=== PATIENT | female | born 1955 | race Caucasian/White ===

== ENCOUNTER 2023-11-24 14:45 | Observation (INO) | payer MEDICARE ==
[2023-11-24] MEDS: NITROGLYCERIN SL TABS 0.4 MG TAB SUBLINGUAL PRN (15:46)
--- NOTE | 2023-11-24 15:48 | ED ---
Chest Pain HPI - General Chief Complaint: Chest Pain Stated Complaint: abn EKG Time Seen by Provider: 11/24/23 15:00 Source: patient, RN notes reviewed Mode of arrival: ambulatory Limitations: no limitations - History of Present Illness Initial Comments: 68-year-old female with a benign past medical history other than cholecystectomy but a family history of it was positive for her dad who had CHF and mother who had a heart valve disorder who presents with complaints of intermittent episodes of left-sided chest discomfort with radiation to the back left shoulder and possibly up to the neck over the last couple weeks. She states it was intermittent up until 1 or 2 days ago there is no more constant. She states it is worse it is 7/10 in severity currently 5/10 just in her back she states there is nothing she can do to make it better or make it worse. She did take 4 baby aspirin's prior to coming in today. She was seen at a local clinic and advised to present to the emergency department. Denies any cough fevers chills sweats nausea vomiting. She did states she has some epigastric discomfort initially upon examination at the clinic but has not at this time. No peripheral edema no other complaints or modifying factors she is a non-smoker MD Complaint: chest pain - Related Data Home Medications Medication Instructions Recorded Confirmed Elderberry Fruit [Elderberry] 350 mg PO DAILY 11/24/23 11/24/23 Multivitamins, Thera [Multivitamin 1 tab PO DAILY 11/24/23 11/24/23 (formulary)] Turmeric Root Extract [Turmeric] 500 mg PO DAILY 11/24/23 11/24/23 Allergies Allergy/AdvReac Type Severity Reaction Status Date / Time No Known Allergies Allergy Verified 11/24/23 15:44 Review of Systems ROS Statement: Those systems with pertinent positive or pertinent negative responses have been documented in the HPI. ROS Other: All systems not noted in ROS Statement are negative. Past Medical History Past Medical History: No Reported History History of Any Multi-Drug Resistant Organisms: None Reported Past Surgical History: Cholecystectomy Past Psychological History: No Psychological Hx Reported Smoking Status: Never smoker Past Alcohol Use History: Occasional Past Drug Use History: None Reported General Exam - General Exam Comments Initial Comments: This is a well-developed well-nourished awake alert oriented x 4 female Limitations: no limitations General appearance: alert, anxious Head exam: Present: atraumatic, normocephalic, normal inspection Eye exam: Present: normal appearance, PERRL, EOMI. Absent: scleral icterus, conjunctival injection, periorbital swelling ENT exam: Present: normal exam, mucous membranes moist Neck exam: Present: normal inspection, full ROM, other (No stridor JVD or bruits). Absent: tenderness, meningismus, lymphadenopathy Respiratory exam: Present: normal lung sounds bilaterally. Absent: respiratory distress, wheezes, rales, rhonchi, stridor Cardiovascular Exam: Present: regular rate, normal rhythm, normal heart sounds, other (Normal upon my examination). Absent: systolic murmur, diastolic murmur, rubs, gallop, clicks GI/Abdominal exam: Present: soft, normal bowel sounds. Absent: distended, tenderness, guarding, rebound, rigid, bruit, pulsatile mass Rectal exam: Present: deferred Extremities exam: Present: normal inspection, full ROM, normal capillary refill. Absent: tenderness, pedal edema, joint swelling, calf tenderness Back exam: Present: normal inspection Neurological exam: Present: alert, oriented X3, CN II-XII intact Psychiatric exam: Present: normal affect, normal mood Skin exam: Present: warm, dry, intact, normal color. Absent: rash Course Vital Signs 11/24/23 11/24/23 11/24/23 14:49 15:22 16:00 Temperature 98.1 F Pulse Rate 108 H 93 Pulse Rate [ 95 Lip Cutter ] Respiratory 20 16 Rate Blood Pressure 173/94 121/83 O2 Sat by Pulse 99 97 Oximetry 11/24/23 17:00 Temperature Pulse Rate 80 Pulse Rate [ Lip Cutter ] Respiratory 14 Rate Blood Pressure 120/80 O2 Sat by Pulse 97 Oximetry - Reevaluation(s) Reevaluation #1: 11/24/23 17:46 Repeat examination of the patient reveals she did get improvement after nitroglycerin was administered. Chest Pain MDM - MDM I did discuss the findings with the patient and family members were present also with Dr. Martin. Patient will be admitted. Was pt. sent in by a medical professional or institution (, PA, [employer], urgent care, hospital, or assisted...) When possible be specific @ -No Did you speak to anyone other than the patient for history (EMS, parent, family, police, friend...)? What history was obtained from this source @ -Family Did you review nursing and triage notes (agree or disagree)? Why? @ -I reviewed and agree with nursing and triage notes Were old charts reviewed (outside hosp., previous admission, EMS record, old EKG, old radiological studies, urgent care reports/EKG's, assisted records)? Report findings @ -No old charts were reviewed Differential Diagnosis (chest pain, altered mental status, abdominal pain women, abdominal pain men, vaginal bleeding, weakness, fever, dyspnea, syncope, headache, dizziness, GI bleed, back pain, seizure, CVA, palpatations, mental health, musculoskeletal)? @ -Chest pain EKG interpreted by me (3pts min.). @ -As above EKG interpreted by me sinus rhythm was 63 parable 172 QRS duration 101 QT/QTc 365/371 minimal voltage criteria for LVH nonspecific inferior configuration this is compared to one sent in with the patient from the outpatient clinic. X-rays interpreted by me (1pt min.). @ -Chest x-ray interpreted by me no acute process. CT interpreted by me (1pt min.). @ -None done U/S interpreted by me (1pt. min.). @ -None done What testing was considered but not performed or refused? (CT, X-rays, U/S, labs)? Why? @ -None What meds were considered but not given or refused? Why? @ -None Did you discuss the management of the patient with other professionals (professionals i.e. , PA, [employer], lab, RT, psych nurse, dialysis social worker, tours captain, teacher, custody officer, correctional counselor/case manager)? Give summary @ -Dr. Martin Was smoking cessation discussed for >3mins.? @ -No Was critical care preformed (if so, how long)? @ -31 Were there social determinants of health that impacted care today? How? (Homelessness, low income, unemployed, alcoholism, drug addiction, transportation, low edu. Level, literacy, decrease access to med. care, custodial, rehab)? @ -No Was there de-escalation of care discussed even if they declined (Discuss DNR or withdrawal of care, Hospice)? DNR status @ -No What co-morbidities impacted this encounter? (DM, HTN, Smoking, COPD, CAD, Cancer, CVA, ARF, Chemo, Hep., AIDS, mental health diagnosis, sleep apnea, morbid obesity)? @ -None Was patient admitted / discharged? Hospital course, mention meds given and route, prescriptions, significant lab abnormalities, going to OR and other pertinent info. @ -Hospital course the patient was admitted for inpatient evaluation and treatment Undiagnosed new problem with uncertain prognosis? @ -Chest pain Drug Therapy requiring intensive monitoring for toxicity (Heparin, Nitro, Insulin, Cardizem)? @ -No Were any procedures done? @ -No Diagnosis/symptom? @ -Acute coronary syndrome, chest pain Acute, or Chronic, or Acute on Chronic? @ -Acute Uncomplicated (without systemic symptoms) or Complicated (systemic symptoms)? @ -Default Side effects of treatment? @ -No Exacerbation, Progression, or Severe Exacerbation? @ -No Poses a threat to life or bodily function? How? (Chest pain, [place], [place], pneumonia, PE, COPD, DKA, ARF, appy, cholecystitis, CVA, Diverticulitis, Homicidal, Suicidal, threat to staff... and all critical care pts) @ -Potential, chest pain Critical Care Time Critical Care Time: Yes Total Critical Care Time: 31 Disposition Clinical Impression: Acute coronary syndrome, Chest pain Disposition: ADMITTED IP TO THIS HOSP Condition: Stable Referrals: Konstantin Sahu MD [Primary Care Provider] - 1-2 days Time of Disposition: 17:51 Decision Date: 11/24/23 Decision Time: 17:51
[2023-11-24 15:58] LABS: Basophils % (A) 0 %; Eosinophils % (A) 0 %; HGB 14.4 gm/dL (11.4-16.0); Lymphocytes % (A) 14 %; MCH 29.1 pg (25.0-35.0); MCHC 32.6 g/dL (31.0-37.0); MCV 89.1 fL (80.0-100.0); Mean Platelet Volume 9.8; Monocytes # (A) 0.3 k/uL (0-1.0); Monocytes % (A) 4 %; Neutrophils # (A) 5.6 k/uL (1.3-7.7); Neutrophils % (A) 79 %; Platelet Count 182 k/uL (150-450); RBC 4.94 m/uL (3.80-5.40); RDW 13.2 % (11.5-15.5); WBC 7.1 k/uL (3.8-10.6)
--- NOTE | 2023-11-24 16:06 | XR ---
EXAMINATION TYPE: XR chest 2V DATE OF EXAM: 11/24/2023 3:59 PM CLINICAL INDICATION:Female, 68 years old with history of chest pain; [facility] COMPARISON: None TECHNIQUE: XR chest 2V Frontal and lateral views of the chest. FINDINGS: Lungs/Pleura: There is no evidence of pleural effusion, focal consolidation, or pneumothorax. Pulmonary vascularity: Unremarkable. Heart/mediastinum: Cardiomediastinal silhouette is unremarkable. Musculoskeletal: No acute osseous pathology. IMPRESSION: No acute cardiopulmonary disease/process.
[2023-11-24 16:36] LABS: African American GFR (CKD) >90 (>60 ml/min/1.73 sqM); Anion Gap 12 mmol/L; Blood Urea Nitrogen 11 mg/dL (7-17); Calcium 9.6 mg/dL (8.4-10.2); Carbon Dioxide 19 mmol/L (22-30); Chloride 112 mmol/L (98-107); Glucose 101 mg/dL (74-99); Lipase 52 U/L (23-300); Non-African American GFR(CKD) 85 (>60 ml/min/1.73 sqM); Sodium 143 mmol/L (137-145)
[2023-11-24 17:03] LABS: Appearance,Urine Clear (Clear); Bilirubin,Urine Negative (Negative); Blood,Urine Negative (Negative); Color,Urine Colorless; Glucose,Urine (UA) Negative (Negative); Ketones,Urine Trace (Negative); Leukocyte Esterase,Urine Moderate (Negative); Mucus,Urine Occasional /hpf; Nitrite,Urine Negative (Negative); PH, Urine 5.5 (5.0-8.0); Protein,Urine Negative (Negative); RBC,Urine 1 /hpf (0-5); Specific Gravity,Urine 1.013 (1.001-1.035); Squamous Epithelial Cell,Urine <1 /hpf (0-4); Urobilinogen,Urine <2.0 mg/dL (<2.0); WBC,Urine 6 /hpf (0-5)
[2023-11-24] MEDS ORDERED: HEPARIN SODIUM 1,000 UN/ML (10ML VL) IV PRN (17:42)
[2023-11-24] MEDS ORDERED: NITROGLYCERIN SL TABS 0.4 MG TAB SUBLINGUAL PRN (17:52)
[2023-11-24] MEDS: HEPARIN SODIUM 1,000 UN/ML (10ML VL) IV ONE (18:19)
[2023-11-24] MEDS: HEPARIN SOD,PORK IN 0.45% NACL 25,000 UNIT in 0.45% NACL 1 250ML.BAG IV SCH (18:19)
[2023-11-24] MEDS: NITROGLYCERIN OINT 1 INCH/GM PACKET TOPICAL SCH (18:23)
[2023-11-24] MEDS: NITROGLYCERIN OINT 1 INCH/GM PACKET TOPICAL STA (18:23)
[2023-11-24 19:06] LABS: INR 0.9 (<1.2); Prothrombin Time 10.1 sec (10.0-12.5)
[2023-11-24 22:20] VITALS: RESP 16
[2023-11-24] MEDS: ACETAMINOPHEN TAB 325 MG TAB PO PRN (23:02)
[2023-11-24] MEDS: ONDANSETRON 4 MG/2 ML VIAL IVP PRN (23:02)
--- NOTE | 2023-11-25 02:09 | P.HPIM ---
History of Present Illness H&P Date: 11/24/23 Chief Complaint: Chest pain 68-year-old female no significant past medical history Patient coming in 2-day history of chest pain started while driving she felt it as pressure 7 out of 10 in severity left-sided under her breast radiating to the left armpit shoulder and back not associated with any dizziness lightheadedness nausea vomiting profuse sweating or shortness of breath however she describes the pain as constant she took some ibuprofen for that without much relief pain was constant throughout the night this morning she decided to come into the hospital for evaluation she denies any cardiac history denies any cardiac workup in the past she denies any upper respiratory infection symptoms denies any fevers chills coughing abdominal pain changes in bowel or urinary habits Denies any tobacco smoking illicit drugs or heavy alcohol review of systems Pertinent positives as noted in HPI. All other systems were reviewed and are negative on exam Constitutional: No acute distress, conversant, pleasant Eyes: Anicteric sclerae, moist conjunctiva, Pupils equal round reactive to light ENMT: NC/AT Oropharynx clear, no erythema, or exudates Neck: Supple, no masses, or JVD No carotid bruits No thyromegaly Lungs: Clear to auscultation Clear to percussion Normal respiratory effort, no accessory muscle use Cardiovascular: Heart regular in rate and rhythm, No murmurs, gallops, or rubs No peripheral edema Abdominal: Soft Nontender, no guarding, rebound or rigidity Abdomen moving with respiration Normoactive bowel sounds Extremities: No digital cyanosis No clubbing Pedal pulses intact and symmetrical Radial pulses intact and symmetrical No calf tenderness Psychiatric: Alert and oriented to person, place and time Appropriate affect fair judgement Neuro Muscles Strength 5/5 in all 4 extremities Sensation to light touch grossly present throughout Cranial nerves II-XII grossly intact 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 History of Any Multi-Drug Resistant Organisms: None Reported Past Surgical History: Cholecystectomy Additional Past Surgical History / Comment(s): approximately 2009 choley at [facility] Past Anesthesia/Blood Transfusion Reactions: No Reported Reaction Past Psychological History: No Psychological Hx Reported Smoking Status: Former smoker Past Alcohol Use History: Rare Past Drug Use History: None Reported - Past Family History Mother History Unknown: Yes Additional Family Medical History / Comment(s): leti repair Father History Unknown: Yes Family Medical History: Cancer, Congestive Heart Failure (CHF), Dementia Additional Family Medical History / Comment(s): larynx cancer Medications and Allergies Home Medications Medication Instructions Recorded Confirmed Type Elderberry Fruit [Elderberry] 350 mg PO DAILY 11/24/23 11/24/23 History Multivitamins, Thera [Multivitamin 1 tab PO DAILY 11/24/23 11/24/23 History (formulary)] Turmeric Root Extract [Turmeric] 500 mg PO DAILY 11/24/23 11/24/23 History Allergies Allergy/AdvReac Type Severity Reaction Status Date / Time No Known Allergies Allergy Verified 11/24/23 15:44 Physical Exam Vitals: Vital Signs Temp Pulse Pulse Resp BP BP Pulse Ox 11/24/23 23:15 98.6 F 75 16 139/79 98 11/24/23 22:00 73 128/81 97 11/24/23 21:00 80 16 120/80 97 11/24/23 17:00 80 14 120/80 97 11/24/23 16:00 93 16 121/83 97 11/24/23 15:22 95 11/24/23 14:49 98.1 F 108 H 20 173/94 99 Intake and Output 11/24/23 11/24/23 11/25/23 14:59 22:59 06:59 Other: Voiding Method Toilet Weight 79.379 kg 79.379 kg Results CBC & Chem 7: 11/24/23 15:16 11/24/23 15:16 Labs: Abnormal Lab Results - Last 24 Hours (Table) 11/24/23 11/24/23 11/24/23 Range/Units 15:16 15:36 23:46 APTT 56.8 H (22.0-30.0) sec Chloride 112 H (98-107) mmol/L Carbon Dioxide 19 L (22-30) mmol/L Glucose 101 H (74-99) mg/dL Urine Ketones Trace H (Negative) Ur Leukocyte Esterase Moderate H (Negative) Urine WBC 6 H (0-5) /hpf Urine Mucus Occasional H (None) /hpf Thrombosis Risk Factor Assmnt - Choose All That Apply Any of the Below Risk Factors Present?: Yes Each Factor Represents 1 point: Obesity (BMI >25), Swollen legs (current) Each Risk Factor Represents 2 Points: Age 61-74 years Other congenital or acquired thrombophilia - If yes, enter type in comment: No Thrombosis Risk Factor Assessment Total Risk Factor Score: 4 Thrombosis Risk Factor Assessment Level: Moderate Risk Assessment and Plan Assessment: 68-year-old female coming in for sudden onset chest pain I discussed case with ED doctor and accepted the admission for chest pain to rule out acute coronary syndrome Atypical chest pain rule out acute coronary syndrome Troponins negative continue to trend D-dimer negative Blood work overall unremarkable sodium 143 potassium 4 BUN 11 creatinine 0.7 Chest x-ray no acute cardiopulmonary process Cardiology consult panel monitor Monitor vital signs Patient is on heparin drip started in the ED Nitro as needed Aspirin 325 mg daily Protonix 40 mg p.o. daily Check lipid profile Full code DVT prophylaxis on heparin drip
[2023-11-25] MEDS: PANTOPRAZOLE 40 MG TABLET PO SCH (05:58)
[2023-11-25] MEDS: ASPIRIN 325 MG TAB PO SCH (08:04)
--- NOTE | 2023-11-25 11:01 | P.CRDCN ---
History of Present Illness History of present illness: HISTORY OF PRESENT ILLNESS: This is a 68-year-old female with a past medical history significant for former nicotine dependence. Patient does not follow with a special education secretary. We have been asked to see the patient in consultation for chest pain. Patient examined at the bedside. Patient states she has been having intermittent chest pain for the past 2 weeks. She states over the past 2 days the pain has gotten worse. She states yesterday the pain was in her left breast and radiated into her armpit and into her back. She denied any shortness of breath. She denied any nausea or vomiting. She does state that she exercises fairly regularly and the pain has not gotten worse with exercise. She did receive nitro when she came to the hospital which she states helped her pain. She denies any further episodes of chest pain or pressure. She is a former cigarette smoker. She denies any drug use including marijuana. Denies any alcohol use. She states her dad has a history of CHF and her mom has a history of an aortic valve replacement. DIAGNOSTICS: - EKG reveals sinus mechanism with nonspecific ST-T wave changes. - Chest xray negative for acute process. - Laboratory data: WBC 7.1. Hemoglobin 14.4. Platelet count 182. D-dimer 0.57. Sodium 143. Potassium 4.0. BUN 11. Creatinine 0.74. Troponin negative x 3. proBNP 106. - Current home cardiac medications include none. REVIEW OF SYSTEMS: At the time of my exam: CONSTITUTIONAL: Denies fever or chills. HEENT: Denies blurred vision, vision changes, or eye pain. Denies hemoptysis CARDIOVASCULAR: Denies chest pain. Denies orthopnea. Denies PND. Denies palpitations RESPIRATORY: Denies shortness of breath. GASTROINTESTINAL: Denies abdominal pain. Denies nausea or vomiting. HEMATOLOGIC: Denies bleeding disorders. GENITOURINARY: Denies any blood in urine. SKIN: Denies pruitis. Denies rash. PHYSICAL EXAM: VITAL SIGNS: Reviewed. GENERAL: Well-developed in no acute distress. HEENT: Head is normocephalic. Pupils are equal, round. Sclerae anicteric. Mucous membranes of the mouth are moist. Neck supple. No JVD or thyromegaly LUNGS: Respirations even and unlabored. Lungs essentially clear to auscultation bilaterally. HEART: Regular rate and rhythm. S1 and S2 heard. ABDOMEN: Soft. Nondistended. Nontender. EXTREMITIES: Normal range of motion. No clubbing or cyanosis. Peripheral pulses intact. No lower extremity edema NEUROLOGIC: Awake and alert. Oriented x 3. ASSESSMENT: Chest pain, troponin negative x 3 Former nicotine dependence Morbid obesity: BMI 32.0 PLAN: An acute coronary but has been ruled out Discontinue heparin drip Decrease aspirin to 81 mg daily Check lipid panel Check hemoglobin A1c Obtain 2D echo to assess cardiac structure and function Patient to undergo stress echocardiogram today If negative, she may be discharged home today from a cardiac standpoint Nurse practitioner note has been reviewed by physician. Signing provider agrees with the documented findings, assessment, and plan of care documented by [employer] as a scribe. 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 History of Any Multi-Drug Resistant Organisms: None Reported Past Surgical History: Cholecystectomy Additional Past Surgical History / Comment(s): approximately 2009 [facility] Past Anesthesia/Blood Transfusion Reactions: No Reported Reaction Past Psychological History: No Psychological Hx Reported Smoking Status: Former smoker Past Alcohol Use History: Rare Past Drug Use History: None Reported - Past Family History Mother History Unknown: Yes Additional Family Medical History / Comment(s): leti repair Father History Unknown: Yes Family Medical History: Cancer, Congestive Heart Failure (CHF), Dementia Additional Family Medical History / Comment(s): larynx cancer Medications and Allergies Home Medications Medication Instructions Recorded Confirmed Type Elderberry Fruit [Elderberry] 350 mg PO DAILY 11/24/23 11/24/23 History Multivitamins, Thera [Multivitamin 1 tab PO DAILY 11/24/23 11/24/23 History (formulary)] Turmeric Root Extract [Turmeric] 500 mg PO DAILY 11/24/23 11/24/23 History Allergies Allergy/AdvReac Type Severity Reaction Status Date / Time No Known Allergies Allergy Verified 11/24/23 15:44 Physical Exam Vitals: Vital Signs Temp Pulse Pulse Resp BP BP Pulse Ox 11/25/23 08:03 97.8 F 81 16 132/79 99 11/25/23 06:12 98.1 F 70 16 133/73 98 11/24/23 23:15 98.6 F 75 16 139/79 98 11/24/23 22:00 73 128/81 97 11/24/23 21:00 80 16 120/80 97 11/24/23 17:00 80 14 120/80 97 11/24/23 16:00 93 16 121/83 97 11/24/23 15:22 95 11/24/23 14:49 98.1 F 108 H 20 173/94 99 Intake and Output 11/24/23 11/25/23 11/25/23 22:59 06:59 14:59 Other: Voiding Method Toilet # Voids 2 Weight 79.379 kg Results 11/24/23 15:16 11/24/23 15:16 Cardiac Enzymes 11/24/23 11/24/23 11/24/23 Range/Units 15:16 18:06 20:32 Troponin I <0.012 <0.012 <0.012 (0.000-0.034) ng/mL Coagulation 11/24/23 11/24/23 Range/Units 18:06 23:46 PT 10.1 (10.0-12.5) sec APTT 56.8 H (22.0-30.0) sec CBC 11/24/23 Range/Units 15:16 WBC 7.1 (3.8-10.6) k/uL RBC 4.94 (3.80-5.40) m/uL Hgb 14.4 (11.4-16.0) gm/dL Hct 44.0 (34.0-46.0) % Plt Count 182 (150-450) k/uL Comprehensive Metabolic Panel 11/24/23 Range/Units 15:16 Sodium 143 (137-145) mmol/L Potassium 4.0 (3.5-5.1) mmol/L Chloride 112 H (98-107) mmol/L Carbon Dioxide 19 L (22-30) mmol/L BUN 11 (7-17) mg/dL Creatinine 0.74 (0.52-1.04) mg/dL Glucose 101 H (74-99) mg/dL Calcium 9.6 (8.4-10.2) mg/dL Current Medications Generic Name Dose Route Start Last Admin Trade Name Freq PRN Reason Stop Dose Admin Acetaminophen 650 mg 11/24/23 22:53 11/25/23 06:05 Acetaminophen Tab 325 Mg Tab PO 650 mg Q4HR PRN Administration Fever and/ or Pain Aspirin 325 mg 11/25/23 09:00 11/25/23 08:04 Aspirin 325 Mg Tab PO 325 mg DAILY [facility] Administration Heparin Sodium (Porcine) 0 unit 11/24/23 17:42 Heparin Sodium 1,000 Un/Ml (10ml Vl) IV PER PROTOCOL PRN Low PTT Protocol Heparin Sodium/Sodium Chloride 250 mls @ 9.525 mls/hr 11/24/23 17:45 11/24/23 18:19 25,000 unit/ Sodium Chloride IV 12 units/kg/hr .Q24H NADEGE 9.525 mls/hr Administration Protocol 12 UNITS/KG/HR Nitroglycerin 0.4 mg 11/24/23 15:34 11/24/23 15:46 Nitroglycerin Sl Tabs 0.4 Mg Tab SUBLINGUAL 0.4 mg Q5M PRN Administration Chest Pain Nitroglycerin 1 inch 11/24/23 18:00 11/25/23 04:40 Nitroglycerin Oint 1 Inch/Gm Packet TOPICAL Not Given Q6HR [facility] Ondansetron HCl 4 mg 11/24/23 22:53 11/24/23 23:02 Ondansetron 4 Mg/2 Ml Vial IVP 4 mg Q6HR PRN Administration Nausea And Vomiting Pantoprazole Sodium 40 mg 11/25/23 07:30 11/25/23 05:58 Pantoprazole 40 Mg Tablet PO Not Given AC-BRKFST [facility] Intake and Output 11/24/23 11/25/23 11/25/23 22:59 06:59 14:59 Other: Voiding Method Toilet # Voids 2 Weight 79.379 kg 11/24/23 15:16 11/24/23 15:16
[2023-11-25 13:09] LABS: INR 0.9 (<1.2); Prothrombin Time 10.1 sec (10.0-12.5)
--- NOTE | 2023-11-25 15:20 | CA ---
Stress Echo Report Tracy Beard Age: 68 Gender: F : 1955 Exam Date: 11/25/2023 10:45 Exam Location: [facility] Ht (in): 62 Wt (lb): 175 Ordering Physician: Zoya Meza Referring Physician: [id number] Quilting Machine Helper: Azra Diaz RDCS Technologist Procedure CPT: Indication: CP ICD-9 Codes: Rhythm: Patient History: CHEST PAIN, PALPITATIONS, NUMBNESS IN FACE/NECK, FAMILY HX OF HEART DISEASE Cardiac Medications: Medications in past 24 hours: Contrast: Stress Results Protocol: Darshan Total dose(mL): Exercise Duration (min:sec): 07:[address] Depression (mm): Angina Score: Cosby Score: METS: 9.1 Resting HR: 82 Resting BP: 133 / 74 Peak HR: 154 Peak BP: 166 / 90 Max Predicted HR: 154 100 % Max Predicted HR Target HR: 131 Double Product: [id number] Stress Summary: BP Response: Reason for Termination: MAX EXERTION/TARGET HR Cardiac Symptoms: NO SYMPTOMS ECG Analysis Resting ECG: Stress ECG: Arrhythmia: Echo Analysis Resting Echo: Peak Echo Analysis: MEASUREMENTS (Male/Female) Normal Values CONCLUSIONS Patient underwent exercise stress echo with a Darshan protocol treadmill stress test. Patient exercised into Stage 3 for a total of 7 minutes and 39 seconds reaching a total of 9.1 METS. Patient's maximum heart rate was 154 which represented 100% age- predicted maximum heart rate. Stress EKG portion: At baseline patient's EKG showed sinus rhythm, normal axis, no significant ST or T wave abnormalities. At peak exercise, EKG showed no significant change from baseline. Stress echo portion: 2-D echocardiogram was performed in the parasternal long, personal short, apical 2 and apical four-chamber views at rest, peak exercise and in recovery. At baseline, echocardiogram showed left ventricular ejection fraction 55% without wall motion abnormalities. With peak exercise, echocardiogram shows improvement in left ventricular ejection fraction, increase contractility, decrease in left ventricular end systolic dimension without wall motion abnormalities consistent with a normal response to exercise. Conclusions: 1. Normal EKG and echo response to exercise without evidence of inducible ischemia. 2. Fair exercise capacity. Dr. Jesus Yoder DO (Electronically Signed) Final Date: 25 November 2023 15:19
--- NOTE | 2023-11-25 15:26 | CA ---
Transthoracic Echo Report Name: Tracy Beard Age: 68 Gender: F : 1955 Exam Date: 11/25/2023 10:37 Exam Location: [place] [facility] Ht (in): 62 Wt (lb): 175 Ordering Physician: Zoya Meza Attending/Referring Phys: [id number], Derrick Performing Artist Azra Diaz RDCS Procedure CPT: Indications: LV function, CP Cardiac Hx: Technical Quality: Fair Contrast 1: Total Dose (mL): Contrast 2: Total Dose (mL): MEASUREMENTS (Male / Female) Normal Values 2D ECHO LV Diastolic Diameter PLAX 3.7 cm 4.2 - 5.9 / 3.9 - 5.3 cm LV Systolic Diameter PLAX 2.2 cm IVS Diastolic Thickness 1.0 cm 0.6 - 1.0 / 0.6 - 0.9 cm LVPW Diastolic Thickness 1.0 cm 0.6 - 1.0 / 0.6 - 0.9 cm LV Relative Wall Thickness 0.5 RV Internal Dim ED PLAX 4.0 cm LA Volume 49.6 cm??? 18 - 58 / 22 - 52 cm??? LA Volume Index 26.2 cm???/m??? 16 - 28 cm???/m??? M-MODE Aortic Root Diameter MM 3.1 cm LA Systolic Diameter MM 2.9 cm LA Ao Ratio MM 0.9 AV Cusp Separation MM 1.5 cm DOPPLER AV Peak Velocity 135.6 cm/s AV Peak Gradient 7.4 mmHg AV Mean Velocity 87.5 cm/s AV Mean Gradient 3.5 mmHg AV Velocity Time Integral 26.6 cm LVOT Peak Velocity 115.8 cm/s LVOT Peak Gradient 5.4 mmHg LVOT Velocity Time Integral 24.0 cm Mitral E Point Velocity 92.1 cm/s Mitral A Point Velocity 72.8 cm/s Mitral E to A Ratio 1.3 MV E' Velocity 5.8 cm/s Mitral E to MV E' Ratio 16.0 TR Peak Velocity 266.7 cm/s TR Peak Gradient 28.4 mmHg Right Ventricular Systolic Press 32.7 mmHg FINDINGS Left Ventricle Normal Left ventricular size, wall thickness, systolic function with no obvious regional wall motion abnormalities. Normal Left ventricular diastolic filling pattern. Right Ventricle Right ventricular dilatation. Right ventricular systolic pressure within normal limits. Right Atrium Right atrium not well visualized. Left Atrium Mildly increased left atrial area. Mitral Valve Structurally normal mitral valve. Mild mitral annular calcification. Mild mitral regurgitation. Aortic Valve Trileaflet aortic valve. No aortic valve stenosis or regurgitation. Tricuspid Valve Structurally normal tricuspid valve. Mild tricuspid regurgitation. Pulmonic Valve Structurally normal pulmonic valve. Pericardium No pericardial effusion. Aorta Normal size aortic root and proximal ascending aorta. CONCLUSIONS Left ventricular ejection fraction 55% RVSP 32 Mild mitral regurgitation Mild tricuspid regurgitation No pericardial effusion Previewed by: Dr. Jesus Yoder DO (Electronically Signed) Final Date: 25 November 2023 15:25
[2023-11-25 15:41] LABS: Chol/HDL Ratio 3.52 Ratio; LDL Cholesterol,Calculated 176.3 mg/dL (0.0-131.0); VLDL Calculation 17.12 mg/dL (5.00-40.00)
[2023-11-25 15:46] LABS: Glucose,Whole Blood 104 mg/dL (70-110)
[2023-11-25 16:30] LABS: Basophils % (A) 1 %; Eosinophils # (A) 0.1 k/uL (0-0.7); Eosinophils % (A) 1 %; HCT 40.4 % (34.0-46.0); Lymphocytes # (A) 2.2 k/uL (1.0-4.8); Lymphocytes % (A) 37 %; MCHC 32.2 g/dL (31.0-37.0); MCV 90.2 fL (80.0-100.0); Mean Platelet Volume 10.1; Monocytes # (A) 0.4 k/uL (0-1.0); Monocytes % (A) 6 %; Neutrophils # (A) 3.1 k/uL (1.3-7.7); Neutrophils % (A) 53 %; Platelet Count 176 k/uL (150-450); RBC 4.48 m/uL (3.80-5.40); RDW 13.3 % (11.5-15.5); WBC 5.9 k/uL (3.8-10.6)
[2023-11-25 16:44] LABS: African American GFR (CKD) >90 (>60 ml/min/1.73 sqM); Anion Gap 8 mmol/L; Blood Urea Nitrogen 12 mg/dL (7-17); Calcium 8.4 mg/dL (8.4-10.2); Carbon Dioxide 22 mmol/L (22-30); Chloride 110 mmol/L (98-107); Glucose 129 mg/dL (74-99); Non-African American GFR(CKD) 89 (>60 ml/min/1.73 sqM); Potassium 3.6 mmol/L (3.5-5.1); Sodium 140 mmol/L (137-145)
[2023-11-25] MEDS: SODIUM CHLORIDE 0.9% 1,000 ML IV ONE (16:47)
[2023-11-25] MEDS: PROCHLORPERAZINE INJ 10 MG/2 ML VIAL IVP PRN (16:48)
--- NOTE | 2023-11-25 17:33 | P.PN ---
Subjective Progress Note Date: 11/25/23 Hospital course: Patient is a very pleasant 68-year-old female with a past medical history of basal cell skin cancer status post removal and former nicotine use. She presented to the emergency department on 12/13 with a chief complaint of chest pain. Patient reported left-sided chest pain described as a pressure radiating into her left axillary region, left shoulder and back presenting while at rest and driving. Upon arrival to our facility, patient underwent evaluation in the emergency department. Vital signs upon arrival show blood pressure 173/94, heart rate 108, respiratory rate 20, temp 98.1 F, and SpO2 of 99% on room air. EKG was completed showing normal sinus rhythm at 95 bpm with no significant T wave or ST abnormalities showing no signs of acute ischemia upon personal review and interpretation. Chest x-ray completed negative for acute cardiopulmonary process. Labs completed and reviewed. CBC unremarkable. Coagulation profile normal findings including D-dimer negative at 0.57. BMP revealing high anion gap metabolic acidosis with chloride of 112, bicarb 19, and anion gap of 12 and blood glucose of 101. Magnesium was normal findings at 2.0. Urinalysis negative for infection. Troponin was negative at less than 0.012. Patient admitted under our services with consultation to cardiology. Troponins trended overnight all negative at less than 0.012 x 3 draws. Repeat morning x-ray showing normal sinus rhythm at 67 bpm with no noted T wave or ST abnormalities showing no signs of acute ischemia. Physical exam: Patient seen and fully evaluated at bedside just upon returning from cardiac stress test. She currently denies having any complaints including headache, lightheadedness, dizziness, chest pain, palpitations, shortness of breath, or any other complaints. Patient eating crackers and drinking juice at this time visiting with daughter at bedside. Vital signs reviewed and stable. General: Nontoxic, no distress and appears stated age. Derm: Skin warm and dry, normal coloration for ethnicity. Head: Atraumatic, normocephalic and symmetric. Eyes: EOMs intact, no lid lag, and anicteric sclera Mouth: no lip lesions, mucus membranes moist Cardiovascular: regular rate and rhythm with normal S1S2, no murmur, positive posterior tibial pulses bilaterally, and cap refill < 2 seconds. Lungs: Respirations even, regular, and unlabored on room air. Lungs CTA bilaterally, no rhonchi, no rales, no wheezing, and no accessory muscle usage. Abdominal: soft, nontender to palpation, no guarding, no appreciable organomegaly Ext: ROM intact. No gross muscle atrophy, scant lower extremity edema, no contractures Neuro: Speech clear, face symmetrical and CN II-XII grossly intact with no noted focal neuro deficits Psych: Alert and oriented to person, place, time, and situation. Appropriate and pleasant affect. Assessment and Plan of Care: Chest pain, acute coronary event ruled out -Cardiology following, taking patient for cardiac stress -Telemetry monitoring -Troponins trended overnight all negative at less than 0.012 x 3 draws. -NPO pending completion of cardiac stress test then may resume heart healthy diet -Aspirin 81 mg daily, atorvastatin, -Lipid profile showing elevated total cholesterol of 270 and elevated LDL of 176.3. Patient started on Lipitor 40 mg daily. -Hemoglobin A1c was 5.6%. -Echocardiogram Data and imaging reviewed: -Troponins trended overnight all negative at less than 0.012 x 3 draws. -Repeat morning x-ray showing normal sinus rhythm at 67 bpm with no noted T wave or ST abnormalities showing no signs of acute ischemia. CODE STATUS: Full code DVT prophylaxis: Heparin Anticipated discharge date: 24 to [address]: Home Patient was seen independently by Nurse Pracitioner. This document was prepared using [employer] dictation software. Please allow for errors in cold mill operator, while rare they do occur. Keith Walters NP rendered care for this patient independently, reviewed the findings and plan as documented in the note above. I did not physically speak with or examine the patient on this date. Objective - Vital Signs Vital signs: Vital Signs Temp 97.8 F 11/25/23 08:03 Pulse 81 11/25/23 08:03 Resp 16 11/25/23 08:03 BP 132/79 11/25/23 08:03 Pulse Ox 99 11/25/23 08:03 FiO2 Intake & Output 11/24/23 11/25/23 11/25/23 18:59 06:59 18:59 Weight 79.379 kg 79.379 kg Other: Voiding Method Toilet # Voids 2 - Labs CBC & Chem 7: 11/25/23 16:22 11/25/23 16:22 Labs: Abnormal Lab Results - Last 24 Hours (Table) 11/24/23 11/24/23 11/24/23 Range/Units 15:16 15:36 23:46 APTT 56.8 H (22.0-30.0) sec Chloride 112 H (98-107) mmol/L Carbon Dioxide 19 L (22-30) mmol/L Glucose 101 H (74-99) mg/dL Urine Ketones Trace H (Negative) Ur Leukocyte Esterase Moderate H (Negative) Urine WBC 6 H (0-5) /hpf Urine Mucus Occasional H (None) /hpf
--- NOTE | 2023-11-25 18:03 | CT ---
EXAMINATION TYPE: CT abdomen w con DATE OF EXAM: 11/25/2023 COMPARISON: None HISTORY: abd pain/nausea and vomitting CT DLP: 1012.20 mGycm CONTRAST: CT scan of the abdomen is performed without Oral Contrast and with IV Contrast, patient injected with 100ml mL of Isovue 300. FINDINGS: LUNG BASES-: No visible nodule. No infiltrate. LIVER/GB: The gallbladder is surgically absent. No space occupying hepatic lesion. Biliary tree is of normal caliber. PANCREAS: No inflammation. No distinct mass. SPLEEN: No splenic enlargement. No lesion seen. ADRENALS: No nodule. No thickening. KIDNEYS/BLADDER: No hydronephrosis. No nephrolithiasis. Left-sided parapelvic renal cysts are noted . Urinary bladder grossly unremarkable. BOWEL: Visualized bowel loops of normal caliber without definite inflammatory change. Nonvisualizatio n of the appendix. No inflammatory process right lower quadrant. LYMPH NODES: No greater than 1cm abdominal or pelvic lymph nodes are appreciated. AORTA: No significant abnormality. OSSEOUS STRUCTURES: No significant abnormality is seen. OTHER: No significant additional abnormality is seen. IMPRESSION: 1. No acute process appreciated at this time.
[2023-11-25] MEDS: SODIUM CHLORIDE 0.9% 1,000 ML IV SCH (18:42)
[2023-11-25] MEDS: ATORVASTATIN 40 MG TAB PO SCH (21:02)
--- NOTE | 2023-11-26 08:33 | P.PN ---
Progress Note - Text Progress Note Date: 11/25/23 Late Entry.. On 11/25/2023 patient was initially preparing for discharge however upon getting up to use the bathroom and upon bearing down to have a bowel movement, patient had a vasovagal episode. Nursing staff reported this was witnessed on telemetry monitoring as patient's heart rate was bradycardia and down and they immediately went to patient's room and found her slumped over on the toilet and safely carried patient back to bed. Telemetry monitoring reported patient had a brief episode of asystole lasting just under 30 seconds. Per medical staff physician upon safely lying patient in bed patient had a pulse and was breathing. Upon my arrival to bedside, patient was awake and alert and was complaining of epigastric and lower abdominal pain/cramping accompanied by significant nausea. Vasovagal episode Epigastric/abdominal pain -Blood glucose obtained resulting at 104. -Vital signs revealed blood pressure 88/52, heart rate 58, respiratory rate 16, and SpO2 100% on room air. -1 L bolus was initiated and patient provided with antiemetics for persistent nausea. -EKG obtained showing sinus bradycardia at 50 bpm. -After 1 L bolus was completed patient's blood pressure stabilized resulting at 128/81 heart rate 60, and respiratory rate of 16 with SpO2 of 100% on room air. -CT abdomen and pelvis with contrast was then completed negative for acute intra-abdominal process. -RN notified reproduction technician during event and spoke with Dr. Dunn with no additional recommendations given at this time. Keith Walters NP rendered care for this patient independently, reviewed the findings and plan as documented in the note above. I did not physically speak with or examine the patient on this date.
[2023-11-26] MEDS: ASPIRIN 81 MG PO SCH (09:16)
[2023-11-26 09:35] VITALS: TEMP 98.3
[2023-11-26 10:52] VITALS: BP 120/76; PULSE 70
--- NOTE | 2023-11-26 11:27 | P.DS ---
Providers Date of admission: 11/24/23 17:54 Expected date of discharge: 11/26/23 Attending physician: Germain Martin MD Consults: 11/24/23 17:52 Consult Physician Urgent Consulting Provider: Ernst Dunn Consult Reason/Comments: ACS, chest pain Do you want consulting provider notified?: Yes Primary care physician: Konstantin Shepherd [facility] Course: Discharge Diagnosis: Chest pain, acute coronary event ruled out Vasovagal episode Abdominal/epigastric pain with nausea. Resolved Hyperlipidemia Hospital course: Patient is a very pleasant 68-year-old female with a past medical history of basal cell skin cancer status post removal and former nicotine use. She p resented to the emergency department on 12/13 with a chief complaint of chest pain. Patient reported left-sided chest pain described as a pressure radiating into her left axillary region, left shoulder and back presenting while at rest and driving. Upon arrival to our facility, patient underwent evaluation in the emergency department. Vital signs upon arrival show blood pressure 173/94, heart rate 108, respiratory rate 20, temp 98.1 F, and SpO2 of 99% on room air. EKG was completed showing normal sinus rhythm at 95 bpm with no significant T wave or ST abnormalities showing no signs of acute ischemia upon personal review and interpretation. Chest x-ray completed negative for acute cardiopulmonary process. Labs completed and reviewed. CBC unremarkable. Coagulation profile normal findings including D-dimer negative at 0.57. BMP revealing high anion gap metabolic acidosis with chloride of 112, bicarb 19, and anion gap of 12 and blood glucose of 101. Magnesium was normal findings at 2.0. Urinalysis negative for infection. Troponin was negative at less than 0.012. Patient admitted under our services with consultation to cardiology. Troponins trended overnight all negative at less than 0.012 x 3 draws. Repeat morning x-ray showing normal sinus rhythm at 67 bpm with no noted T wave or ST abnormalities showing no signs of acute ischemia. Echocardiogram completed showing a preserved EF of 55% with mild mitral and tricuspid regurgitation. Patient underwent stress echo reported normal EKG and echo response to exercise without evidence of inducible ischemia. Patient initially preparing for discharge however on the evening of 11/25/2023 patient went up to the bathroom and upon bearing down had a vasovagal episode. Nursing staff immediately to bedside and safely assisting patient back to bed. Telemetry monitoring reported patient had a brief episode of asystole lasting just under 30 seconds. Per nurse staff industrial upon safely lying patient in bed patient had a pulse and was breathing. Upon arrival to bedside, patient awake and alert and was complaining of epigastric/abdominal pain and significant nausea. Blood glucose obtained resulting at 104. Vital signs revealed blood pressure 88/52, heart rate 58, respiratory rate 16, and SpO2 100% on room air. 1 L bolus was initiated and patient provided with antiemetics for persistent nausea. EKG obtained showing sinus bradycardia at 50 bpm. After 1 L bolus was completed patient's blood pressure stabilized resulting at 128/81 heart rate 60, and respiratory rate of 16 with SpO2 of 100% on room air. Stat repeat labs completed CBC was unremarkable, BMP showing mild hyperchloremia with chloride of 110 otherwise normal findings. Troponin was less than 0.[address] abdomen and pelvis with contrast was then completed negative for acute intra-abdominal process. Patient's abdominal pain and nausea subsided after bowel movement. Patient had no further episodes throughout the night and morning. Orthostatic vitals were negative. Cardiology reviewed telemetry monitoring and repeat EKG, evaluating patient and clearing her from cardiac perspective for discharge. Patient is medically stable for [facility] at this time free from any complaints or concerns. She is ambulating in room and in halls with family. Patient to be discharged home and follow-up outpatient with PCP in 1 to 2 days and with cardiology in 1 week. Physical exam: Patient seen and fully evaluated at bedside. She was ambulating in room, family members visiting at bedside. Patient currently free from any complaints or concerns at this time. Vital signs reviewed and stable. General: Nontoxic, no distress and appears stated age. Derm: Skin warm and dry, normal coloration for ethnicity. Head: Atraumatic, normocephalic and symmetric. Eyes: EOMs intact, no lid lag, and anicteric sclera Mouth: no lip lesions, mucus membranes moist Cardiovascular: regular rate and rhythm with normal S1S2, no murmur, positive posterior tibial pulses bilaterally, and cap refill < 2 seconds. Lungs: Respirations even, regular, and unlabored on room air. Lungs CTA bilaterally, no rhonchi, no rales, no wheezing, and no accessory muscle usage. Abdominal: soft, nontender to palpation, no guarding, no appreciable organomegaly Ext: ROM intact. No gross muscle atrophy, scant lower extremity edema, no contractures Neuro: Speech clear, face symmetrical and CN II-XII grossly intact with no noted focal neuro deficits Psych: Alert and oriented to person, place, time, and situation. Appropriate and pleasant affect. A total of 35 minutes of time were spent preparing this complex discharge summary. Pt was discharged on 11/26/2023 at 11:27 AM Patient was seen independently by Nurse Practitioner. This document was prepared using [employer] dictation software. Please allow for errors in customs inspector while rare they do occur. I reviewed the documentation as provided by the ALEXANDER above, who is the original author of this note. I agree with the documented assessment and plan, with the following changes: none Patient Condition at Discharge: Stable Plan - Discharge Summary Discharge Rx Participant: Yes New Discharge Prescriptions: New Pantoprazole [Protonix] 40 mg PO AC-BRKFST 90 Days #90 tab Atorvastatin [Lipitor] 40 mg PO DAILY 90 Days #90 tab polyethylene glycoL 3350 [Miralax] 17 gm PO DAILY 30 Days #30 packet Continue Turmeric Root Extract [Turmeric] 500 mg PO DAILY Multivitamins, Thera [Multivitamin (formulary)] 1 tab PO DAILY Elderberry Fruit [Elderberry] 350 mg PO DAILY Discharge Medication List Elderberry Fruit [Elderberry] 350 mg PO DAILY 11/24/23 [History] Multivitamins, Thera [Multivitamin (formulary)] 1 tab PO DAILY 11/24/23 [History] Turmeric Root Extract [Turmeric] 500 mg PO DAILY 11/24/23 [History] Atorvastatin [Lipitor] 40 mg PO DAILY 90 Days #90 tab 11/26/23 [Rx] Pantoprazole [Protonix] 40 mg PO AC-BRKFST 90 Days #90 tab 11/26/23 [Rx] polyethylene glycoL 3350 [Miralax] 17 gm PO DAILY 30 Days #30 packet 11/26/23 [Rx] Follow up Appointment(s)/Referral(s): Konstantin Sahu MD [Primary Care Provider] - 1-2 days (Unable to get through. Please call to schedue appointment) Ernst Dunn MD [STAFF PHYSICIAN] - 1 Week (Spoke to precision dancerLinda. Office will call with appointment time) Patient Instructions/Handouts: Coronary Artery Disease (DC), Chest Pain (DC) Activity/Diet/Wound Care/Special Instructions: Activity: As tolerated. Take breaks as needed. Diet: Heart healthy and carb consistent diet. Avoid salts, or foods with hidden salts such as canned or boxed foods and frozen dinners. Extra salt makes your heart work harder and traps the fluid in your body for longer. Special Instructions: Take all of your medications as directed and remember to keep all of your doctor's appointments and follow-up as needed. Thank you for allowing us to participate in your care, it was truly a pleasure having you for our patient!!! . Discharge Disposition: HOME SELF-CARE
--- NOTE | 2023-11-26 11:47 | P.PN ---
Subjective HISTORY OF PRESENT ILLNESS: This is a 68-year-old female with a past medical history significant for former nicotine dependence. Patient does not follow with a scientific research manager. We have been asked to see the patient in consultation for chest pain. Patient examined at the bedside. Patient states she has been having intermittent chest pain for the past 2 weeks. She states over the past 2 days the pain has gotten worse. She states yesterday the pain was in her left breast and radiated into her armpit and into her back. She denied any shortness of breath. She denied any nausea or vomiting. She does state that she exercises fairly regularly and the pain has not gotten worse with exercise. She did receive nitro when she came to the hospital which she states helped her pain. She denies any further episodes of chest pain or pressure. She is a former cigarette smoker. She denies any drug use including marijuana. Denies any alcohol use. She states her dad has a history of CHF and her mom has a history of an aortic valve replacement. DIAGNOSTICS: - EKG reveals sinus mechanism with nonspecific ST-T wave changes. - Chest xray negative for acute process. - Laboratory data: WBC 7.1. Hemoglobin 14.4. Platelet count 182. D-dimer 0 .57. Sodium 143. Potassium 4.0. BUN 11. Creatinine 0.74. Troponin negative x 3. proBNP 106. - Current home cardiac medications include none. 01/2024 Patient underwent stress echocardiogram yesterday which was negative for ischemia. Echocardiogram completed revealing EF 55% with mild MR and mild TR. Yesterday, patient was up using the bathroom and reports having a lot of abdominal cramping and was bearing down to have a bowel movement and had a vasovagal episode. The patient examined this morning at the bedside. Her family is present. Patient currently denies any chest pain or pressure. She denies any shortness of breath. Patient's vital signs this morning are stable. No further episodes of vasovagal. She has been up ambulating this morning in the hallway with her family. Orthostatic blood pressures obtained this morning and are negative. PHYSICAL EXAM: VITAL SIGNS: Reviewed. GENERAL: Well-developed in no acute distress. HEENT: Head is normocephalic. Pupils are equal, round. Sclerae anicteric. Mucous membranes of the mouth are moist. Neck supple. No JVD or thyromegaly LUNGS: Respirations even and unlabored. Lungs essentially clear to auscultation bilaterally. HEART: Regular rate and rhythm. S1 and S2 heard. ABDOMEN: Soft. Nondistended. Nontender. EXTREMITIES: Normal range of motion. No clubbing or cyanosis. Peripheral pulses intact. No lower extremity edema NEUROLOGIC: Awake and alert. Oriented x 3. ASSESSMENT: Chest pain, troponin negative x 3 status post stress echo with no evidence of ischemia Vasovagal syncope Former nicotine dependence Morbid obesity: BMI 32.0 PLAN: Patient is stable for discharge home today from a cardiac standpoint She is to follow-up postdischarge in the office with Dr. Dunn Nurse practitioner note has been reviewed by physician. Signing provider agrees with the documented findings, assessment, and plan of care documented by SCOOP MACHINE OPERATOR as a scribe. Objective - Vital Signs Vital signs: Vital Signs Temp 98.3 F 11/26/23 09:12 Pulse 70 11/26/23 10:42 Resp 16 11/26/23 10:42 BP 120/76 11/26/23 10:42 Pulse Ox 97 11/26/23 10:42 FiO2 Intake & Output 11/25/23 11/26/23 11/26/23 18:59 06:59 18:59 Intake Total 358 358 Balance 358 358 Intake: Oral 358 358 Other: Voiding Method Toilet # Voids 1 1 1 # Bowel Movements 1 - Labs CBC & Chem 7: 11/25/23 16:22 11/25/23 16:22 Labs: Abnormal Lab Results - Last 24 Hours (Table) 11/25/23 11/25/23 Range/Units 12:05 16:22 Chloride 110 H (98-107) mmol/L Glucose 129 H (74-99) mg/dL Cholesterol 270.00 H (0.00-200.00) mg/dL LDL Cholesterol, Calc 176.3 H (0.0-131.0) mg/dL HDL Cholesterol 76.60 H (40.00-60.00) mg/dL
== END 2023-11-26 12:27 | disposition home or self-care (01) ==
LOC: EC 14:45 → 6NMEDSUR 17:54 → 3SCARD 20:45
PROVIDERS: ADMIT Student in an Organized Health Care Education/Training Program; ATTEND Student in an Organized Health Care Education/Training Program
DX: R07.89 Other chest pain (principal); R10.13 Epigastric pain; R55 Syncope and collapse; E78.5 Hyperlipidemia, unspecified; E66.01 Morbid (severe) obesity due to excess calories; Z68.32 Body mass index [BMI] 32.0-32.9, adult; Z85.828 Personal history of other malignant neoplasm of skin; Z87.891 Personal history of nicotine dependence; Z82.49 Family history of ischemic heart disease and other diseases of the circulatory system
CPT/HCPCS: 96376; 96361; 96366 ×2; 96375 ×2; 96365; 99291; 36415; 94760; 93005; 93306; 93351; 85379; 83880; 80061; 80048 ×2; 83690; 83735 ×2; 84484 ×2; 85025 ×2; 85610 ×2; 85730 ×2; 81001; 83036; 71046; 74160; G0378 ×4; J0780; J2405 ×2; J1644 ×2; Q9967